=== PATIENT | male | born 1960 | race Caucasian/White ===

== ENCOUNTER 2022-12-14 15:57 | Outpatient (CLI) | payer BC, SELFPAY ==
[2022-12-14 14:35] LABS: Chloride* 106 mmol/L (96-114); Potassium* 4.7 mmol/L (3.6-5.1); Sodium* 139 mmol/L (135-149)
[2022-12-14 14:37] LABS: Carbon Dioxide* 27 mmol/L (20-32); Cholesterol* 184 mg/dL (90-199); Creatinine* 0.7 mg/dL (0.5-1.5); Estimated Glomerular Filt Rate 103 ml/min
[2022-12-14 14:38] LABS: Alanine Aminotransferase* 33 U/L (4-50); Alkaline Phosphatase* 62 U/L (40-150); Aspartate Amino Transferase* 27 U/L (12-35); Bilirubin Total* 0.6 mg/dL (0.1-1.5); Blood Urea Nitrogen* 17 mg/dL (7-30); Glucose* 123 mg/dL (60-115); Total Protein* 6.8 g/dL (6.0-8.3); Triglycerides* 117 mg/dL (40-149)
[2022-12-14 14:39] LABS: Calcium* 9.1 mg/dL (8.4-10.6); HDL Cholesterol* 35 mg/dL (>=40); LDL Cholesterol Calculated 126 mg/dL (<100)
== END 2022-12-14 15:58 | disposition home or self-care (01) ==
PROVIDERS: PCP Internal Medicine; Visit Provider Internal Medicine
DX: Z00.00 Encounter for general adult medical examination without abnormal findings (principal); Z12.5 Encounter for screening for malignant neoplasm of prostate; Z13.6 Encounter for screening for cardiovascular disorders
CPT/HCPCS: 80053; 80061; 84153

== ENCOUNTER 2023-06-11 08:12 | Outpatient (CLI) | payer BC, SELFPAY | END 2023-06-11 08:13 | disposition home or self-care (01) | LOC: NFLDREF 06-13 01:38 | PROVIDERS: PCP Internal Medicine; Referring Provider Internal Medicine; Visit Provider Internal Medicine | DX: Z13.9 Encounter for screening, unspecified (principal); Z13.6 Encounter for screening for cardiovascular disorders | CPT/HCPCS: 80053; 80061 ==

== ENCOUNTER 2023-08-12 06:29 | Outpatient (CLI) | payer BC, MEDICARE, SELFPAY ==
--- NOTE | 2023-08-12 08:01 | W.ANESCHARGE ---
Anesthesia Charges Start Date/Time Anesthesia Start Date: 08/12/23 Anesthesia Start Time: 07:15 Stop Date/Time Anesthesia Stop Date: 08/12/23 Anesthesia Stop Time: 07:58
--- NOTE | 2023-08-12 08:24 | W.ANESCHARGE ---
Anesthesia Charges Start Date/Time Anesthesia Start Date: 08/12/23 Anesthesia Start Time: 07:15 Stop Date/Time Anesthesia Stop Date: 08/12/23 Anesthesia Stop Time: 07:58
== END 2023-08-12 06:30 | disposition home or self-care (01) ==
LOC: OP CLINIC 06:32
PROVIDERS: PCP Internal Medicine; Visit Provider Surgery
DX: Z12.11 Encounter for screening for malignant neoplasm of colon (principal); K63.5 Polyp of colon; K57.30 Diverticulosis of large intestine without perforation or abscess without bleeding; Z86.010 Personal history of colon polyps
CPT/HCPCS: 00811; 45381; 45385; 88305; J2704

== ENCOUNTER 2024-04-19 10:22 | Outpatient (CLI) | payer MEDICARE, BC, SELFPAY | END 2024-04-19 10:23 | disposition home or self-care (01) | PROVIDERS: PCP Internal Medicine; Visit Provider Internal Medicine | DX: E53.8 Deficiency of other specified B group vitamins (principal); E66.9 Obesity, unspecified | CPT/HCPCS: 82607; 83540; 83550 ==

== ENCOUNTER 2024-06-02 08:15 | Outpatient (RCR) | payer MEDICARE, BC, SELFPAY ==
--- NOTE | 2024-04-25 12:49 | PT.OPE ---
PT [place] [facility] Outpatient Eval Start: 04/25/24 08:47 Freq: Status: Active Protocol: Document 04/25/24 08:47 ENM (Rec: 04/25/24 11:02 ENM [id number]) E-signed By Tricia Moseley, DPT Physical Therapy Outpatient Evaluation Insurance Information Recert Due Date 07/24/24 Insurance Name Medicare B Medical Diagnosis cervicalgia Treating Diagnosis neck pain, right shoulder pain , decreased neck ROM, decreased shoulder ROM, levator scapulae tightness Referring MD Gay Subjective Subjective Patient presents to PT for evaluation of neck pain. The pain is running on the left side of his neck. He is not sure when it started. Maybe injured it when rolling on to his left shoulder getting out of a kayak. He thought it was maybe stress related from work but then he retired and it did not seem to make a difference. It has consistently been hurting. Sometimes get tingling down the arm and into the hand. He has tried heat and ice which helped sometimes but nothing long lasting. It seems to be worse when he is not doing anything. There is almost no pain in the morning but then it worsens through the day. It doesn't stop him from doing any activity and he doesn't have pain during but will feel it after. When it started: not sure Describes it as: aching Timing: worsens through the day Location: left neck and shoulder Irritability: mild Severity: mild Medication: gabapentin for restless legs Pain Comments at its best: tolerable at its worse: 5-6/10 easing: ice, heat aggravating: none Current Work Status Retired Objective Other/Pertinent Objective Cervical AROM: Cervical flexion: 48 no pain with repeated or overpressure Extension: 23 no pain with repeated or overpressure SB: L 31 R 20 feels stuck Rot: L 52 R 40 feels tight Shoulder AROM in standing : Flexion: L 155 pain and tight R 150 (no pain when performed passively) Abduction: L 133 pain and tight R 156 (no pain when performed passively) IR: T12 B ER: T3 + for pain on L Strength: shoulder flexion: L 4+/5 R 4+/ 5 shoulder abduction: 4/5 B shoulder IR: 4+/5 B shoulder ER: 4/5 B scapular strength fair with retraction, tends to compensate with UT to perform Palpation/joint mobility: Cervical PA mobilization: + for neck pain at C6-7 Thoracic PA mobilization: stiffness throughout + for pain palpation of L UT, levator, supraspinatus Special tests spurlings gapping - spurling compression slight discomfort with SB and ext Angeline - Dawna Vignesh - Posture: increased shoulder protraction, forward head posture, Assessment Assessment/Impression Patient is a 63 year old male presenting with left sided neck pain that started months ago. Their primary complaint is of pain that increases throughout the day without any known cause. They are able to complete all of their daily activities but note that they will then have pain after. Pains have been consistent and have not improved over the last couple of months. Upon assessment patients concordant pains brought on with active shoulder flexion/ abduction/ER, cervical PAs of C6-7 and palpation of L levator/UT/supraspinatus. No pain present with shoulder MMT . Special testing of shoulder and neck was negative for reproduction of symptoms. He responds well to manual therapy working at left neck/ shoulder with less pain during shoulder AROM after. Symptoms consistent with muscular pains in UT and levator region . Andreas would greatly benefit from skilled PT to address impairments stated above in order to perform all household duties and recreational activities without significant discomfort or difficulty. Primary Functional Limitations is able to perform all activities but will then have pain after Plan of Care Rehabilitation Potential Good Physical Therapy Goals In 6-8 visits: 1. Patient will be IND with HEP and self management of symptoms 2. Patient will display pain free active shoulder ROM in all planes in order to perform all functional activities with less discomfort 3. Patient will be able to make it through the day with 2 /10 or less neck pain for improved activity tolerance 4. Patient will display middle trap strength to at least 4/5 to better support cervical spine and shoulder with recreational activities Coordination/Communication With Referral Source Treatment Plan/Direct Interventions Ice/Cold/Vasopneumatic,Joint Mobilization,Manual Therapy, Neuromuscular Re-ed,Self-Care/ Home Management,Therapeutic Activities,Therapeutic Exercises,Traction (Mechanical ) Frequency/Duration 1x a week for 6-8 weeks, as needed for 2-3 visits Patient Will Be Discharged From Therapy Completion of LTG(s), Independent w/HEP Evaluation Billing Untimed Code Treatment Minutes 24 Complexity Low Certification Information Initial Certification Date 04/25/24 Ending Certification Date 07/24/24 Provider Signature Required Yes Provider Signature Shows Agreement With POC & Medical Necessity Physician NPI Number Write NPI# Here Physician Comment/Change : Physician Signature & Date Requested Please Sign/Date Here
== END 2024-09-30 23:59 | disposition home or self-care (01) ==
PROVIDERS: PCP Internal Medicine; Visit Provider Internal Medicine
DX: M54.2 Cervicalgia (principal); Z74.09 Other reduced mobility; M25.512 Pain in left shoulder; M62.89 Other specified disorders of muscle; Z51.89 Encounter for other specified aftercare
CPT/HCPCS: 97110; 97140; 97161

== ENCOUNTER 2024-08-31 15:03 | Outpatient (CLI) | payer MEDICARE, BC, SELFPAY ==
--- OUTSIDE RECORDS SUMMARY | 2024-08-31 15:05 | XMS_ITS | Encounter Summary ---
Author Organization [facility] Address [address] [place] [address] Care Team Providers Care Tube Rebuilder Name Role Phone Unavailable Primary Care Provider Unavailabl e Reason for Visit * Outpatient (Routine) - Closed Specialty Diagnoses / Procedures Referred By Pepito reno Referred To Contact Sleep Medicine Noah Fabian M.D. [address] [place] [phone] Phone: tel: fax: [facility] Referral ID Status Reason Start Date Expiration Date Visits Re quested Visits Authorized [id number] Closed 02/22/2024 08/23/2025 1 1 Encounter Details Date Type Department Care Team (Late st Contact Info) Description 06/08/2024 3:00 PM CDT [facility] in [place], [place] [address] [place] [phone] Noah Fabian M.D. [address] [place] [phone] Apnea Sleep Obstructive (Primary Dx); Periodic Limb Movement Disorder; Deficiency Vitamin B12 Social History Tobacco Use Types Packs/Day Years Used Date Smoking Tobacco: Never Passive Smoke Exposure: Never Smokeless Tobacco: Never Alcohol Use Standard Drinks/Week Comments Not Currently 0 (1 standard drink = 0.6 oz pur e alcohol) [facility] Utilities Answer Date Recorded In the past 12 months has e electric, gas, oil, or water company threatened to shut off services in your home? No 02/16/2024 Exercise Vital Sign Answer Date Recorde d On average, how many days pe r week do you engage in moderate to strenuous exercise (like a brisk walk)? 5 days 02/16/2024 On average, how many minutes do you engage in exercise at this level? 30 min 02/16/2024 Hunger Vital Sign Answer Date Recorded Within the past 12 months, y ou worried that your food would run out before you got the money to buy more. Never true 02/16/20 24 Within the past 12 months, t he food you bought just didn't last and you didn't have money to get more. Never true 02/16/2024 PRAPARE - Transportation Answer Date Re corded In the past 12 months, has l ack of transportation kept you from medical appointments or from getting medications? No 02/06 In the past 12 months, has l ack of transportation kept you from meetings, work, or from getting things needed for daily living? No 02/16/2024 Nutrition Answer Date Recorded On average, how many serving s of fruits and vegetables do you eat per day (serving size is equal to 1 cup or approximately the size of a tennis ball)? 3-5 02/16/2024 Dental Answer Date Recorded Dental: Regular Dentist Yes 02/16/20 Employment Answer Date Recorded Employment status Retired 02/16/2024 Housing Stability Answer Date Recorded What is your living situation today? 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 - 06/08/2024 3:00 PM CDT SUBJECTIVE CHIEF COMPLAINT/REASON FOR VISIT Return HISTORY OF PRESENT ILLNESS Consult conducted via real-time audio/video technology by Noah Fabian M.D. in [facility] to the patient in Patient's Home. Patient returns. I last saw him 3 months ago. At the time PSG showed: Summary: Overnight polysomnography study was performed as a full night CPAP titration with addition of parasomnia leads. A total sleep time of 307.5 minutes was recorded after an initial sleep latencies of 28minutes. Sleep efficiency was reduced 61% sleep architecture showed reduced stage N3. Initial REM sleep latencies was normal. The patient slept in all positions. CPAP pressures of 5-12 cm water were applied. At a pressure of 12 cm water sleep disordered breathing events and snoring were effectively eliminated. Sleep disordered breathing events consisted mostly of hypopneas. The oxygen saturation normalized, the breathing related arousal index normalized. The overall arousal index was elevated at 27 per hour with 2 per hour breathing related, 14 per hour movement related, the remainder nonspecific. Periodic limb movements of sleep were seen at a frequency of 88 per hour and lead to arousals 13 times per hour. Periodic limb movements of sleep persisted into REM sleep resulting in the finding of REM sleep without atonia. No dream enactment behaviors were seen. Intermittent bruxism was noted and also persisted into REM sleep. Clinical interpretation: Successful CPAP trial at 12 cm water pressure. Periodic limb movements of sleep with associated arousals. REM sleep without atonia of uncertain clinical significance. We had found significant periodic limb movements of sleep in the setting of severe vitamin B12 deficiency with a vitamin B12 of 145, absence of intrinsic factor blocking antibodies but elevated methylmalonic acid. Plan at last visit: Check intrinsic factor blocking antibodies and methylmalonic acid level. Resume vitamin B12 injections indefinitely. Patient will arrange through his primary care provider locally. Injection should be pursued as follows: 1000 mcg subQ/IM injection daily for 1 week, then weekly for 1 month, monthly thereafter. Recheck vitamin B12 levels in 3 months. Treatment trial for periodic limb movement disorder with dopaminergic agent or alpha 2 delta Ligand. After discussion we decided on another gabapentin trial at 300 mg nightly 1 hour before bed, this can be increased every 1-2 weeks by 300 mg to a goal of 900 mg nightly. Patient will monitor for side effects and treatment efficacy. Continue CPAP, no adjustment in pressure settings necessary. Patient will follow with his local provider who also has finishing CPAP prescriptions. Monitor for dream enactment behaviors. Follow-up visit in 3 months, sooner if any difficulties Today he reports: He is doing very well. His sleep has improved. He no longer wakes during the night and is no longertired in the morning upon waking. He has received his round of vitamin B12 injections and now uses daily oral replacement he thinks 1000 mcg per day. He also uses gabapentin 300 mg nightly without any side effects and that has reduced the periodic limb movements of sleep significantly. He reports his state there was very little nocturnal leg movements present. He continues to utilize his CPAP without any difficulties ; see download below. Overall he is pleased with his sleep currently. Compliance Report Usage 05/03/2024 - 06/01/2024 Usage days 30/30 days (100%) >= 4 hours 29 days (97%) < 4 hours 1 days (3%) Average usage (days used) 7 hours 35 minutes Median usage (days used) 7 hours 42 minutes AirSense 10 AutoSet Serial number [id number] Mode AutoSet Min Pressure 10 cmH2O Max Pressure 17 cmH2O EPR Off Response Standard Therapy Pressure - cmH2O Median: 12.6 95th percentile: 15.3 Maximum: 16.3 Leaks - L/min Median: 6.8 95th percentile: 13.8 Maximum: 17.8 Events per hour AI: 1.7 HI: 1.3 AHI: 3.0 Apnea Index Central: 0.4 Obstructive: 1.3 Unknown: 0.0 RERA Index 0.6 Manuel-Faith respiration (average duration per night) 0 minutes (0%) [place] Score: 3 (06/01/24 1057 : Patient, Online Services) International Restless Legs Study Group Severity Scale: (not recorded) Current Outpatient Medications on File Prior to Visit Medication Sig Dispense Refill DME CPAP DME Order gabapentin (NEURONTIN) 300 mg capsule 1 cap 1 hr before bed for 7 nights. May increase by 1 cap every 1-2 weeks until a max dose of 3 cap (900 mg) is reached. Stop at dose that periodic limb movements improve. 100 capsule 11 tadalafiL (CIALIS) 20 mg tablet Take 20 mg by mouth daily as needed. triamcinolone (NASACORT) 55 mcg/actuation nasal spray Administer 2 sprays into each nostril daily. Using every night . Vit B12 p.o. daily No current facility-administered medications on file prior to visit. OBJECTIVE PHYSICAL EXAM There were no vitals filed for this visit. There is no height or weight on file to calculate BMI. ASSESSMENT / PLAN 1. Obstructive sleep apnea-hypopnea 2. Periodic limb movement disorder 3. REM sleep without atonia of uncertain clinical significance 4. Bruxism 5. Vitamin B12 deficiency Patient is currently doing very well. His sleep disordered breathing is well treated on the currentCPAP pressure settings. We do not need to make any adjustments. He meets compliance criteria and continues to derive benefit. Ongoing therapy is medically necessary. His periodic limb movements have significantly improved on an gabapentin 300 mg nightly and he has no side effects. He is replacing the vitamin B12 orally daily, presumably at 1000 mcg per day and he reports his local provider has rechecked levels which were found to be normal. His overall sleep quality has improved Plan: Continue current regimen with CPAP for KASEY, gabapentin 300 mg nightly for periodic limb movement disorder and vitamin B12 high dose orally for vitamin B12 deficiency. I recommend that the vitamin B12 levels be rechecked every 3 months to ascertain they are well-maintained in the high range of normal. The patient will follow-up with his local provider but we in touch with me if there are any questions or concerns. I tried to answer all questions Total time spent completing care for the patient, [id number] and non [id number]: 20 min. documented in this encounter Plan of Treatment Not on file documented as of this encounter Visit Diagnoses Diagnosis Apnea Sleep Obstructive- Primary Periodic Limb Movement Disorder Deficiency Vitamin B12 documented in this encounter
--- OUTSIDE RECORDS SUMMARY | 2024-08-31 15:05 | XMS_ITS | Clinical Summary ---
Author Organization [facility] Address [address] [place] [address] Care Team Providers Care Level Vial Curvature Gauger Name Role Phone Unavailable Primary Care Provider Unavailabl e Source Comments Patient records contain information from all sites at [facility]. For routine questions regarding patient records, call [phone] during business hours, M-F 8:00 AM - 5:00 PM Central Time. Record requests for emergency care only can be directed to [phone] at any time.[facility] Allergies No known active allergies Medications tadalafiL (CIALIS) 20 mg tablet Take 20 mg by mouth daily as needed. 4 Active triamcinolone (NASACORT) 55 mcg/actuation nasal spray Administer 2 sprays into each nostril daily. Using every night Active DME CPAP DME Order Active gabapentin (NEURONTIN) 300 mg capsule 1 cap 1 hr before bed for 7 nights. May increase by 1 cap every 1-2 weeks until a max dose of 3 cap (900 mg) is reached. Stop at dose that periodic limb movements improve. 100 capsule 11 4 Active Encounters Date Type Department Care Team Description 06/08/2024 3:00 PM CDT [facility] in [place], [place] [address] [place] [address] Noah Nj M.D. Apnea Sleep Obstructive (Primary Dx); Periodic Limb Movement Disorder; Deficiency Vitamin B12 from Last 3 Months Social History Tobacco Use Types Packs/Day Years Used Date Smoking Tobacco: Never Passive Smoke Exposure: Never Smokeless Tobacco: Never Tobacco Cessation:Counseling Given: Not Answered Alcohol Use Standard Drinks/Week Comments Not Currently 0 (1 standard drink = 0.6 oz pur e alcohol) [facility] Utilities Answer Date Recorded In the past 12 months has th e electric, gas, oil, or water company [...] money to buy more. Never true 02/16/20 Within the past 12 months, t he [...] your living situation today? 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 Gender Identity Male 01/18/2024 9:51 AM CDT Sexual Orientation Straight 01/18/2024 9: 51 AM CDT Last Filed Vital Signs Vital Sign Reading Time Taken Comments Blood Pressure 125/73 02/21/2024 1:12 PM CDT Pulse 69 02/21/2024 1:12 PM CDT Temperature - - Respiratory Rate - - Oxygen Saturation - - Inhaled Oxygen Concentration - - Weight 113 kg (250 lb) 02/21/2024 1:12 PM CDT Height 173.5 cm (5' 8.31) 02/21/2024 1:12 PM CD T Body Mass Index 37.67 02/21/2024 1:12 PM CDT Plan of Treatment Health Maintenance Due Date Last Done Comments CT Colonography 1958 Cologuard 1960 Colonoscopy 1960 Colorectal Cancer Screening 1960 FIT 1958 Fasting Glucose for Diabetes Screening 1960 Hepatitis C Screening 1960 Depression Screening (Annual PHQ-2) 11/08/2023 Fall Risk Screen (Annual) 11/08/2023 COVID-19 Vaccine (5 - 2023-2 5 season) 2024 06/25/2022, 10/03/2021, 02/13/2021, Additional history exists Influenza Vaccine (#1) 2024 10/03/2021, 2017 DTaP,Tdap,and Td Vaccines (3 - Td or Tdap) 07/09/2031 07/09/2021, 08/21/2017, 03/09/2006 Zoster Vaccines Completed 07/09/2021, 01/2019, 07/14/2018 Pneumococcal vaccine (65+ years) Completed 06/28/20 23 Medical Devices Implanted Type Area Ecommerce Analyst Device Identifier Shelf Expiration Date Model / Serial / Lot Hardware E.G. Pins/Screws/R ods-11/08/1994 Implanted:11/1994 (Quantity not on file) Hardware e.g. pins/screws/ rods Left: Wrist Hardware E.G. Pins/Screws/R ods-01/06/2017 Implanted:11/2016 (Quantity not on file) Hardware e.g. pins/screws/ rods Right: Wrist Insurance [facility] MEDICARE
--- OUTSIDE RECORDS SUMMARY | 2024-08-31 15:05 | XMS_ITS | Referral Summary ---
Author Organization [facility] Address [address] [place] [address] Care Team Providers Care Senior Data Quality Analyst Name Role Phone Unavailable Primary Care Provider Unavailabl e Source Comments Patient records contain information from all sites at [facility]. For routine questions regarding patient records, call [phone] during business hours, M-F 8:00 AM - 5:00 PM Central Time. Record requests for emergency care only can be directed to [phone] at any time.[facility] Encounters Date Type Department Care Team Description 06/08/2024 3:00 PM CDT [facility] in [place], [place] [address] [place] [address] Noah Nj M.D. Apnea Sleep Obstructive (Primary Dx); Periodic Limb Movement Disorder; Deficiency Vitamin B12 from Last 3 Months Allergies No known active allergies Medications tadalafiL [...] movements improve. 100 capsule 11 4 Active Social History Tobacco Use Types Packs/Day Years Used Date Smoking Tobacco: Never Passive Smoke Exposure: Never Smokeless Tobacco: Never Tobacco Cessation:Counseling Given: Not Answered Alcohol Use Standard Drinks/Week Comments Not Currently 0 (1 standard drink = 0.6 oz pur e alcohol) [facility] Utilities Answer Date Recorded In the [...] your living situation today? I have a [facility] place to live 02/16/2024 Sex and Gender Information Value Date Recorded Sex Assigned at Male 01/18/2024 9:51 AM CDT Legal Sex Male 2:48 PM PT SITTER Gender Identity Male 01/18/2024 9:51 AM CDT [...] 02/21/2024 1:12 PM CDT Plan of Treatment Not on file Medical Devices Implanted Type Area Junior Linux Systems Administrator Device Identifier Shelf Expiration Date Model / Serial / Lot Hardware E.G. Pins/Screws/R ods-11/08/1994 Implanted:11/1994 (Quantity not on file) Hardware e.g. pins/screws/ rods Left: Wrist Hardware E.G. Pins/Screws/R ods-01/06/2017 Implanted:11/2016 (Quantity not on file) Hardware e.g. pins/screws/ rods Right: Wrist Insurance [facility] MED[facility]
--- OUTSIDE RECORDS SUMMARY | 2024-08-31 15:05 | XMS_ITS ---
Author Organization [facility] Address [address] [place] [address] Care Team Providers Care Slat Grader Name Role Phone Unavailable Unavailable Unavailable Surgery Details Not on file Complications Check Surgery Details section. Procedure Estimated Blood Loss Check Surgery Details section. Procedure Findings Check Surgery Details section. Procedure Specimens Taken Check Surgery Details section.
== END 2024-08-31 15:04 | disposition home or self-care (01) ==
LOC: NFLDREF 15:04
PROVIDERS: PCP Internal Medicine; Visit Provider Internal Medicine
DX: E53.8 Deficiency of other specified B group vitamins (principal)
CPT/HCPCS: 82607

== ENCOUNTER 2024-09-28 13:27 | Outpatient (CLI) | payer MEDICARE, BC, SELFPAY ==
--- NOTE | 2024-09-28 13:55 | W.ANESCHARGE ---
Anesthesia Charges Start Date/Time Anesthesia Start Date: 09/28/24 Anesthesia Start Time: 13:45 Stop Date/Time Anesthesia Stop Date: 09/28/24 Anesthesia Stop Time: 14:10
--- NOTE | 2024-09-28 14:12 | W.ANESCHARGE ---
Anesthesia Charges Start Date/Time Anesthesia Start Date: 09/28/24 Anesthesia Start Time: 13:45 Stop Date/Time Anesthesia Stop Date: 09/28/24 Anesthesia Stop Time: 14:10
== END 2024-09-28 13:28 | disposition home or self-care (01) ==
LOC: OP CLINIC 13:28
PROVIDERS: PCP Internal Medicine; Visit Provider Internal Medicine
DX: K57.30 Diverticulosis of large intestine without perforation or abscess without bleeding (principal); Z86.0101 Personal history of adenomatous and serrated colon polyps; Z86.0100 Personal history of colon polyps, unspecified
CPT/HCPCS: 00811; 45385; 88305; J2704

== ENCOUNTER 2025-01-11 07:08 | Outpatient (CLI) | payer MEDICARE, BC, SELFPAY | END 2025-01-11 07:09 | disposition home or self-care (01) | LOC: MRI 07:09 | PROVIDERS: PCP Internal Medicine; Visit Provider Internal Medicine | DX: M54.12 Radiculopathy, cervical region (principal); M47.892 Other spondylosis, cervical region; M50.21 Other cervical disc displacement, high cervical region; M50.221 Other cervical disc displacement at C4-C5 level; M50.222 Other cervical disc displacement at C5-C6 level | CPT/HCPCS: 72141 ==

== ENCOUNTER 2025-04-20 15:10 | Emergency (ER) | payer MEDICARE, BC, SELFPAY ==
--- OUTSIDE RECORDS SUMMARY | 2011-09-28 05:00 | XMS_ITS | Continuity of Care Document ---
Author Organization [facility] Address [address] [address] [place] [address] Phone Care Team Providers Care Nurse Clinician Name Role Phone Link Bean HERNANDEZ Unavailable Unavailable Allergies, Adverse Reactions, Alerts Substance Reaction Status Criticality No Known allergies Medications Medication Instructions Dosage Effective Dates (start - stop) Status Comments No Drug Therapy Prescribed Procedures Procedure Date Colonoscopy Flex; Dx (sep Pro) 11 Colonoscopy Flex; W/remov Advance Directives Directive Yes / No Effective Date File Name Resuscitation Not Answered N/A N/A Life Support Not Answered N/A N/A Intubation Not Answered N/A N/A Antibiotics Not Answered N/A N/A IV Fluid Support Not Answered N/A N/A Tube Feed Not Answered N/A N/A Other Directive N/A N/A WARNING:The information contained in this section is historical and is provided for information only and does not constitute a legal document or any assurance that the information is still accurate. Please verify the information with the sapp of the legal document before using it for clinical purposes. Encounters Encounter Description Practice Location Reason(s) For Visit Diagnoses Date Provider Providers Copied on Encounter [facility], [address] [address], [place], [id number], [place] tel:[phone] Radha [facility] Diverticulosis Of ColonColon Cancer ScreeningPersonal History Colon PolypsColon Cancer ScreeningDiverticu losis Of ColonPersonal History Colon Polyps 1 Tj Del Angel. [address] [facility], [place], [place], [id number] , [place]. tel:[phone] Referring Provider: Ham Schuler [place] C, [address] [place], [address]. tel:[phone] [facility], [address] [address], [place], [place], [id number], [place] tel:[phone] [facility] Dave Vasques. [address] [facility], [address], [place], [place], [id number] , [place]. [phone] Referring Provider: Amarjit De La Cruz MD [place], [address], [place], [address]. tel:[phone] Family History Family Member Type Diagnosis Age At Onset No Information Payers Payer name Insurance type Covered libertarian ID Authoriza tion(s) No Information Social History Type Description Quantity Date Captured Comments Alcohol Use Details Unknown Caffeine Use Details Unknown Tobacco Use Status No Information Smoking Status No Information Sex Male Chief Complaint And Reason For Visit No Information Reason For Referral Reason For Referral No Information History Of Present Illness Encounter Date Complaint History Of Prese nt Illness No Information Functional Status Date Functional Assessmen t No Information Medications Administered Medication Instructions Dosage Effective Dates (start - stop) Status Comments No Drug Therapy Prescribed Instructions Date Instruction Additional Infor mation No Information Assessments Type Assessment Date No Information Patient Care Teams Name Effective Dates (start - stop) Status Members No Information
--- OUTSIDE RECORDS SUMMARY | 2011-09-28 05:00 | XMS_ITS | Continuity of Care Document ---
Author Organization [facility] Address [address] [address] [place] [address] Phone Care Team Providers Care Reading Specialist Name Role Phone Link Bean HERNANDEZ Unavailable [...] Diagnoses Date Provider Providers Copied on Encounter [facility], [address] [address], [place], [id number], [place] tel:[phone] Radha [facility] Diverticulosis Of ColonColon Cancer ScreeningPersonal History Colon PolypsColon Cancer ScreeningDiverticu losis Of ColonPersonal History Colon Polyps 1 Tj Del Angel. [address] [facility], [address], [place], [place], [id number] , [place]. tel:[phone] Referring Provider: Ham Schuler MD C, [address] [place], [address]. tel:[phone] [facility], [address] [address], [place], [place], [id number], [place] tel:[phone] [facility] Dave Vasques. [address] [facility], [address], [place], [place], [id number] , [place]. [phone] Referring Provider: Amarjit De La Cruz MD [place], [address], [place], [address]. tel:[phone] Family History Family Member Type Diagnosis Age At Onset No Information Payers Payer name Insurance type Covered alliance party ID Authoriza tion(s) No Information Social History [...]
[2025-04-20] VITALS (23 sets, daily range): BP systolic 104–145; BP diastolic 50–70; PULSE 48–65; RESP 14–19; TEMP 36.6; O2SAT 90–99; BMI 39.5
--- NOTE | 2025-04-20 15:34 | CRLHL7_ITS ---
For Patients: As a result of the Century Cures Act, medical imaging exams and procedure reports are released immediately into your electronic medical record. You may view this report before your referring provider. If you have questions, please contact your health care provider. INDICATION: Chest pain. TECHNIQUE: Chest 2 views. COMPARISON: None. FINDINGS: Unremarkable cardiomediastinal contours. No lung consolidation. No sign of pleural effusion. No pneumothorax. No acute osseous or soft tissue findings. IMPRESSION: No acute findings. Dictated by Aba West MD @ 04/20/2025 4:15:40 PM (Electronically Signed)
--- NOTE | 2025-04-20 15:43 | ED.GENADULT ---
HPI - General Adult General Chief complaint: Chest Pain Stated complaint: Chest pain Time Seen by Provider: 04/20/25 15:22 Source: patient Mode of arrival: ambulatory Limitations: no limitations History of Present Illness HPI narrative: 64-year-old male, history of restless leg syndrome, obstructive sleep apnea and erectile dysfunction presents today with chest pain that started approximately 2 hours ago. Patient was driving home from [place]. Patient drove to [place] 10 days ago. He denies shortness of breath, dizziness or diaphoresis. Chest pain is located over the left chest area, does not radiate. Nothing seems to make it better or worse. He describes it as someone squeezing his chest. The sensation comes and goes. It occurs every couple of minutes and last for 10-15 seconds. Denies this ever happening before. Denies any personal or family history of coronary artery disease or blood clots. Patient takes gabapentin daily. He also takes Cialis, however his last dose was approximately 1 month ago. Pain did start approximately 1 hour after lunch. Related Data Home Medications ?Medication ?Instructions ?Recorded ?Confirmed mecobalamin (vitamin B12) 5,000 5,000 mcg PO QDAY 02/26/25 04/20/25 mcg chewable tablet gabapentin 300 mg capsule 300 mg PO QPM 04/20/25 04/20/25 Previous Rx's ?Medication ?Instructions ?Recorded tadalafil 20 mg tablet 20 mg PO QDAY ED #30 tabs 08/31/24 Allergies Allergy/AdvReac Type Severity Reaction Status Date / Time No Known Allergies Allergy Unknown Verified 04/20/25 15:18 Review of Systems Status of ROS: Reports: 10 or more systems reviewed and unremarkable except as noted in History and below [facility] Medical History Restless leg syndrome ?G25.81 - Restless legs syndrome (ICD-10) Cervical radiculopathy ?M54.12 - Radiculopathy, cervical region (ICD-10) Neck pain ?M54.2 - Cervicalgia (ICD-10) Vitamin B12 deficiency ?E53.8 - Deficiency of other specified B group vitamins (ICD-10) Obesity ?E66.9 - Obesity, unspecified (ICD-10) Colon polyps ?K63.5 - Polyp of colon (ICD-10) Erectile dysfunction ?N52.9 - Male erectile dysfunction, unspecified (ICD-10) Surgical History Status post laparoscopic cholecystectomy ?Z90.49 - Acquired absence of other specified parts of digestive tract (ICD-10) Social History What is your current living situation?: I presently have a place to live Problems where you live: no known problems In the past 12 months, utilities in danger of being shut off: no In past 12 months, lack of transportation kept you from medical appts, meetings, work, or getting things needed for daily living: no In the past 12 mos, have been you worried that your food would run out before you had money to buy more?: never true In the past 12 mos, the food you bought just didn't last and you didn't have money to buy more?: never true Smoking Status: Never smoker How often do you have a drink containing alcohol: never AUDIT-C Alcohol total score: 0 Non-prescribed substance use: denies use How often does anyone, including family, friends and others, physically hurt you: never How often does anyone, including family, friends and others, insult or talk down to you: never How often does anyone, including family, friends and others, threaten you with harm: never How often does anyone, including family, friends and others, scream or curse at you: never Exam Narrative: Exam Narrative: Well-nourished well-developed patient in no acute distress. Alert and oriented. Answers questions appropriately. Mood and affect are appropriate. Thoughts are goal oriented and rational. No tangential or magical thinking noted. Patient speaks in full sentences without needing to catch his breath. HEENT: Normocephalic atraumatic. Pupils are equally round reactive to light. Extraocular muscles are intact. Conjunctivae are moist without any icterus noted. Moist mucous membranes. Neck is soft. Cardiovascular: Heart is regular rate and rhythm S1 and S2 are present without any murmurs. Lungs: Clear to auscultation bilaterally no wheezes rhonchi or rales are appreciated. Patient takes deep breaths without any discomfort. I cannot reproduce his pain palpation. Abdomen: Soft and nontender nondistended with normal bowel sounds. Extremities: Bilateral lower extremities are without edema. Skin: Well perfused without any obvious rashes. Const: Vital Signs, click to edit/add: Vital Signs - 24 hr 04/20/25 15:14 04/20/25 15:37 04/20/25 15:40 Temperature 97.8 F Pulse Rate 57 L Pulse Rate [Left P ulse Oximeter] 65 Respiratory Rate 18 Blood Pressure Blood Pressure [Le ft Upper Arm] 145/70 H Pulse Oximetry 96 97 97 Oxygen Delivery Me thod Room Air 04/20/25 16:02 04/20/25 16:07 04/20/25 16:15 Temperature Pulse Rate 58 L 53 L 64 Pulse Rate [Left P ulse Oximeter] Respiratory Rate 19 18 Blood Pressure 108/53 L 104/53 L Blood Pressure [Le ft Upper Arm] Pulse Oximetry 97 94 91 Oxygen Delivery Me thod 04/20/25 16:16 04/20/25 16:30 04/20/25 16:32 Temperature Pulse Rate 59 L 52 L 52 L Pulse Rate [Left P ulse Oximeter] Respiratory Rate 16 Blood Pressure 112/50 L Blood Pressure [Le ft Upper Arm] Pulse Oximetry 94 90 95 Oxygen Delivery Me thod 04/20/25 16:45 04/20/25 17:00 04/20/25 17:02 Temperature Pulse Rate 50 L 50 L 52 L Pulse Rate [Left P ulse Oximeter] Respiratory Rate Blood Pressure 117/63 Blood Pressure [Le ft Upper Arm] Pulse Oximetry 97 97 96 Oxygen Delivery Me thod 04/20/25 17:15 04/20/25 17:30 04/20/25 17:35 Temperature Pulse Rate 49 L 52 L 50 L Pulse Rate [Left P ulse Oximeter] Respiratory Rate 15 Blood Pressure 114/66 Blood Pressure [Le ft Upper Arm] Pulse Oximetry 97 93 96 Oxygen Delivery Me thod 04/20/25 17:45 04/20/25 18:00 04/20/25 18:02 Temperature Pulse Rate 51 L 48 L 48 L Pulse Rate [Left P ulse Oximeter] Respiratory Rate Blood Pressure 121/69 Blood Pressure [Le ft Upper Arm] Pulse Oximetry 98 98 99 Oxygen Delivery Me thod 04/20/25 18:15 04/20/25 18:30 04/20/25 18:32 Temperature Pulse Rate 49 L 52 L 51 L Pulse Rate [Left P ulse Oximeter] Respiratory Rate 14 Blood Pressure 115/70 Blood Pressure [Le ft Upper Arm] Pulse Oximetry 97 94 94 Oxygen Delivery Me thod 04/20/25 18:33 04/20/25 18:45 Temperature Pulse Rate 50 L 53 L Pulse Rate [Left P ulse Oximeter] Respiratory Rate Blood Pressure Blood Pressure [Le ft Upper Arm] Pulse Oximetry 94 97 Oxygen Delivery Me thod Course Course ED Course: EKG, read by me, shows sinus bradycardia with a pulse of 57, normal ME, QRS and QTC intervals. Patient was given aspirin in the sublingual nitro. The nitro did not change his pain at all. Chest x-ray, read by me, does not show any acute pathology. Blood work was unremarkable. Normal troponin. Repeat EKG and troponin unchanged. Third troponin at approximately the 6 hour vijay from when symptoms started unchanged. Given the patient's presentation it seems that he is having a spasm of the muscle wall verses a nerve pain. I do not think that this is consistent with an acute coronary syndrome. There is also no evidence of lung pathology or myocarditis or pericarditis. There is no evidence of pneumothorax or pneumonia. Systems are not consistent with an aortic dissection. Vital Signs Vital signs: Initial Vital Signs Temperature 97.8 F 04/20/25 15:14 Temperature Source Temporal Artery Scan 04/20/25 15:14 Pulse Rate 65 04/20/25 15:14 Pulse Rhythm Regular 04/20/25 15:14 Pulse Strength 3+ Normal 04/20/25 15:14 Respiratory Rate 18 04/20/25 15:14 Blood Pressure 145/70 H 04/20/25 15:14 Blood Pressure Mean 95 04/20/25 15:14 Blood Pressure Position Sitting 04/20/25 15:14 Pulse Oximetry 96 04/20/25 15:14 Oxygen Delivery Method Room Air 04/20/25 15:14 Vital Signs Temperature 97.8 F 04/20/25 15:14 Pulse Rate 65 04/20/25 15:14 Respiratory Rate 18 04/20/25 15:14 Blood Pressure 145/70 H 04/20/25 15:14 Pulse Oximetry 96 04/20/25 15:14 Oxygen Delivery Method Room Air 04/20/25 15:14 Temperature 97.8 F 04/20/25 15:14 Pulse Rate 53 L 04/20/25 18:45 Respiratory Rate 14 04/20/25 18:32 Blood Pressure 115/70 04/20/25 18:32 Pulse Oximetry 97 04/20/25 18:45 Oxygen Delivery Method Room Air 04/20/25 15:14 Medications Administered Medications: Discontinued Medications Generic Name Dose Route Start Last Admin Trade Name Freq PRN Reason Stop Dose Admin Aspirin 324 mg 04/20/25 15:33 04/20/25 16:04 Aspirin 81 Mg Tab.Chew PO 04/20/25 15:34 324 mg ONCE ONE Administration Nitroglycerin 0.4 mg 04/20/25 15:33 04/20/25 16:06 Nitroglycerin 0.4 Mg Tab.Subl SUBLINGUAL 04/20/25 15:34 0.4 mg ONCE ONE Administration Medical Decision Making MDM Narrative Medical decision making narrative: 64-year-old male presenting with atypical chest pain, likely a chest wall pain caused by nerve dysfunction or muscle spasm. Lab Data Lab results reviewed: Yes I reviewed the patient's lab results Labs: Lab Results 04/20/25 04/20/25 04/20/25 Range/Units 15:34 15:49 17:06 WBC 6.58 (4.50-11.00) K/uL RBC 4.76 (4.30-5.90) m/uL Hgb 14.3 (13.5-17.5) gm/dL Hct 43.3 (37.0-53.0) % MCV 91 (80-100) fL MCH 30 (26-34) pg MCHC 33 (32-36) gm/dL RDW Coeff of Kayley 13.1 (11.5-15.5) % Plt Count 300 (140-440) K/uL Neut % (Auto) 64.2 (42.0-72.0) % Lymph % (Auto) 20.1 (20-44) % [place] % (Auto) 9.9 (0.0-11.0) % Eos % (Auto) 3.8 (0.0-7.0) % Baso % (Auto) 0.8 (0.0-3.0) % Neut # (Auto) 4.23 (1.7-7.0) K/uL Lymph # (Auto) 1.32 (0.90-2.90) K/uL [place] # (Auto) 0.70 (0.00-0.90) K/UL Eos # (Auto) 0.25 (0.00-0.50) K/uL Baso # (Auto) 0.05 (0.00-0.30) K/uL Abs Immat Gran (auto) 0.08 (0.00-0.30) K/uL Imm/Tot Granulo (auto) 1.2 % D-Dimer Quant (PE/DVT) 0.39 (0.00-0.50) ug/ml Sodium 140 (135-149) mmol/L Potassium 4.2 (3.6-5.1) mmol/L Chloride 104 (96-114) mmol/L Carbon Dioxide 29 (20-32) mmol/L Anion Gap 7 (7-15) mEq/L BUN 12 (7-30) mg/dL Creatinine 0.7 (0.5-1.5) mg/dL Estimated Creat Clear 70.30 Estimated GFR 102 ml/min Glucose 106 (60-115) mg/dL Lactate 1.4 (0.5-1.9) mmol/L Calcium 8.9 (8.4-10.6) mg/dL Total Bilirubin 0.5 (0.1-1.5) mg/dL Direct Bilirubin 0.2 (0.0-0.5) mg/dL AST 39 H (12-35) U/L ALT 31 (4-50) U/L Alkaline Phosphatase 81 (40-150) U/L Troponin I < 0.01 (0.01-0.04) ng/mL C-Reactive Protein < 0.5 L (0.5-1.0) mg/dL Total Protein 6.9 (6.0-8.3) g/dL Albumin 4.0 (3.3-5.0) g/dL POC Troponin I 0.01 0.00 L (0.01-0.04) ng/ml 04/20/25 Range/Units 18:48 WBC (4.50-11.00) K/uL RBC (4.30-5.90) m/uL Hgb (13.5-17.5) gm/dL Hct (37.0-53.0) % MCV (80-100) fL MCH (26-34) pg MCHC (32-36) gm/dL RDW Coeff of Kayley (11.5-15.5) % Plt Count (140-440) K/uL Neut % (Auto) (42.0-72.0) % Lymph % (Auto) (20-44) % [place] % (Auto) (0.0-11.0) % Eos % (Auto) (0.0-7.0) % Baso % (Auto) (0.0-3.0) % Neut # (Auto) (1.7-7.0) K/uL Lymph # (Auto) (0.90-2.90) K/uL [place] # (Auto) (0.00-0.90) K/UL Eos # (Auto) (0.00-0.50) K/uL Baso # (Auto) (0.00-0.30) K/uL Abs Immat Gran (auto) (0.00-0.30) K/uL Imm/Tot Granulo (auto) % D-Dimer Quant (PE/DVT) (0.00-0.50) ug/ml Sodium (135-149) mmol/L Potassium (3.6-5.1) mmol/L Chloride (96-114) mmol/L Carbon Dioxide (20-32) mmol/L Anion Gap (7-15) mEq/L BUN (7-30) mg/dL Creatinine (0.5-1.5) mg/dL Estimated Creat Clear Estimated GFR ml/min Glucose (60-115) mg/dL Lactate (0.5-1.9) mmol/L Calcium (8.4-10.6) mg/dL Total Bilirubin (0.1-1.5) mg/dL Direct Bilirubin (0.0-0.5) mg/dL AST (12-35) U/L ALT (4-50) U/L Alkaline Phosphatase (40-150) U/L Troponin I (0.01-0.04) ng/mL C-Reactive Protein (0.5-1.0) mg/dL Total Protein (6.0-8.3) g/dL Albumin (3.3-5.0) g/dL POC Troponin I 0.00 L (0.01-0.04) ng/ml Imaging Data Chest x-ray: Attestation: I have reviewed the pertinent imaging results. Radiologist's impression: TECHNIQUE: Chest 2 views. COMPARISON: None. FINDINGS: Unremarkable cardiomediastinal contours. No lung consolidation. No sign of pleural effusion. No pneumothorax. No acute osseous or soft tissue findings. IMPRESSION: No acute findings. ECG Data Attestation: I personally reviewed and interpreted this ECG as follows: Discharge Plan Discharge Clinical Impression: Atypical chest pain Patient Disposition: Home, Self-Care Condition: Stable Additional Instructions: Your workup today was unremarkable. I do not see any evidence of a heart attack or pathology of the lungs that could be causing your discomfort. Your discomfort seems more consistent with a pain of the chest wall caused by muscle spasm or a pinched nerve. Recommend ibuprofen as needed/as directed. Can also try ice or heat to the chest wall. Do not apply either for more than 20 minutes at a time and do not apply directly to skin. Follow-up with your primary care provider next week. Return to the emergency room if you develop shortness of breath, dizziness, sweating or worsening pain. Prescriptions: No Action tadalafil 20 mg tablet 20 mg PO QDAY Qty: 30 3RF mecobalamin (vitamin B12) 5,000 mcg tablet,chewable 5,000 mcg PO QDAY gabapentin 300 mg capsule 300 mg PO QPM Follow Up/Referrals: Je Gay MD [Primary Care Provider, Internal Medicine] Stand Alone Forms: [email or web address] Info Instructions
[2025-04-20 15:55] LABS: Lactate* 1.4 mmol/L (0.5-1.9)
[2025-04-20 15:57] LABS: Basophils Absolute Auto 0.05 K/uL (0.00-0.30); Basophils Percent Auto 0.8 % (0.0-3.0); Eosinophils Absolute Auto 0.25 K/uL (0.00-0.50); Eosinophils Percent Auto 3.8 % (0.0-7.0); Hematocrit 43.3 % (37.0-53.0); Hemoglobin* 14.3 gm/dL (13.5-17.5); Immature Granulocytes Abs Auto 0.08 K/uL (0.00-0.30); Immature Granulocytes Pct Auto 1.2 %; Lymphocytes Absolute Auto 1.32 K/uL (0.90-2.90); Lymphocytes Percent Auto 20.1 % (20-44); Mean Corpuscular HGB Conc 33 gm/dL (32-36); Mean Corpuscular Hemoglobin 30 pg (26-34); Mean Corpuscular Volume 91 fL (80-100); Monocytes Percent Auto 9.9 % (0.0-11.0); Neutrophils Absolute Auto 4.23 K/uL (1.7-7.0); Neutrophils Percent Auto 64.2 % (42.0-72.0); Platelet Count* 300 K/uL (140-440); RDW Coefficient of Variation % 13.1 % (11.5-15.5); Red Blood Count 4.76 m/uL (4.30-5.90); White Blood Count* 6.58 K/uL (4.50-11.00)
[2025-04-20 15:59] LABS: Slide Review Reflex No
[2025-04-20] MEDS: ASPIRIN 81 MG TAB.CHEW 324 MG PO (16:04)
[2025-04-20 16:06] LABS: Troponin, Point-of-Care* 0.01 ng/ml (0.01-0.04)
[2025-04-20] MEDS: NITROGLYCERIN 0.4 MG TAB.SUBL SUBLINGUAL (16:06)
[2025-04-20 16:09] LABS: Chloride* 104 mmol/L (96-114)
[2025-04-20 16:10] LABS: Potassium* 4.2 mmol/L (3.6-5.1); Sodium* 140 mmol/L (135-149)
[2025-04-20 16:12] LABS: Blood Urea Nitrogen* 12 mg/dL (7-30); Creatinine* 0.7 mg/dL (0.5-1.5); Estimated Glomerular Filt Rate 102 ml/min
[2025-04-20 16:13] LABS: Alanine Aminotransferase* 31 U/L (4-50); Alkaline Phosphatase* 81 U/L (40-150); Anion Gap 7 mEq/L (7-15); Aspartate Amino Transferase* 39 U/L (12-35); Bilirubin Direct* 0.2 mg/dL (0.0-0.5); Bilirubin Total* 0.5 mg/dL (0.1-1.5); Calcium* 8.9 mg/dL (8.4-10.6); Carbon Dioxide* 29 mmol/L (20-32); Glucose* 106 mg/dL (60-115); Total Protein* 6.9 g/dL (6.0-8.3)
[2025-04-20 16:19] LABS: C Reactive Protein* < 0.5 mg/dL (0.5-1.0)
[2025-04-20 16:23] LABS: D Dimer Quantitative* 0.39 ug/ml (0.00-0.50)
[2025-04-20 16:30] LABS: Troponin I* < 0.01 ng/mL (0.01-0.04)
== END 2025-04-20 19:24 | disposition home or self-care (01) ==
PROVIDERS: Emergency Provider Family Medicine; PCP Internal Medicine
DX: R07.89 Other chest pain (principal)
CPT/HCPCS: 36415; 71046; 80048; 80076; 83605; 84484; 85025; 85379; 86140; 93005; 94761; 99284; 99285; A9270

== ENCOUNTER 2025-04-24 10:41 | Outpatient (CLI) | payer MEDICARE, BC, SELFPAY | END 2025-04-24 10:42 | disposition home or self-care (01) | LOC: NFLDREF 10:42 | PROVIDERS: PCP Internal Medicine; Visit Provider Internal Medicine | DX: R07.89 Other chest pain (principal); R53.83 Other fatigue | CPT/HCPCS: 87468; 87469; 87484; 87798 ==

== ENCOUNTER 2025-05-01 12:38 | Outpatient (CLI) | payer MEDICARE, BC, SELFPAY ==
[2025-05-01 13:42] VITALS: BP 166/76; PULSE 83; RESP 16
--- NOTE | 2025-05-01 13:52 | W.PM.STED ---
Stress Test Note Date Date Seen: 05/01/25 Date of test: 05/01/25 Providers Primary care provider: Je Gay Stress test physician: Akiko Orourke Stress Test Note Stress test ordered: Stress Echo Indication for test: Chest pain Stress test medicine: None Results discussion: Resting EKG: Sinus rhythm, 64 beats per minute. Flipped T-waves lead V1 without any acute ST segment changes. Resting blood pressure: 124/76 Stress test: Patient is consented on standard Camilo protocol exercise treadmill stress echo and agrees to proceed. Patient was able to exercise to 6 minutes 30 seconds, stopping due to reaching exercise capacity. This was equivocal it was 7.7 Mets. He had a maximum heart rate of 145 beats per minute which was 110% of a calculated target heart rate of 131. He had a maximal blood pressure of 180/74. Rate pressure product 26,100. Patient had no chest symptoms, no symptoms concerning during this stress test. There were no diagnostic EKG changes. Await echo images to couple this for a full formal diagnostic. Impression: Subjectively negative, objectively negative EKG portion of this stress echo. Follow up suggested: Patient is discharged to home in stable condition. He will await echo images to couple this for a full formal diagnostic.
== END 2025-05-01 13:43 | disposition home or self-care (01) ==
LOC: STRESS 12:40
PROVIDERS: PCP Internal Medicine; Visit Provider Internal Medicine
DX: R07.89 Other chest pain (principal)
CPT/HCPCS: 93016; 93325; 93351

== ENCOUNTER 2025-10-08 07:53 | Outpatient (CLI) | payer MEDICARE, BC, SELFPAY | END 2025-10-08 07:54 | disposition home or self-care (01) | PROVIDERS: PCP Internal Medicine; Visit Provider Internal Medicine | DX: S83.92XA Sprain of unspecified site of left knee, initial encounter (principal) | CPT/HCPCS: 80053; 80061; G0103 ==